=== PATIENT | female | born 1990 | race Two or more races ===

== ENCOUNTER 2019-05-26 13:20 | Emergency (ER) | payer MEDICAID ==
[~2019-05-26] VITALS: Ht 167.6 cm; Wt 63.5 kg
[2019-05-26 14:42] VITALS: BP 117/67
[2019-05-26] MEDS ORDERED: ACETAMINOPHEN/CODEINE#3 (300/30mg) TAB PO ONE (16:30)
== END 2019-05-26 16:49 | disposition home or self-care (01) ==
LOC: ER 13:23
DX: S30.0XXA Contusion of lower back and pelvis, initial encounter (principal); M53.3 Sacrococcygeal disorders, not elsewhere classified; R51 Headache; F12.10 Cannabis abuse, uncomplicated; Z98.51 Tubal ligation status; W19.XXXA Unspecified fall, initial encounter; Y93.89 Activity, other specified; Y92.89 Other specified places as the place of occurrence of the external cause; Y99.8 Other external cause status
CPT/HCPCS: 72220